=== PATIENT | male | born 1960 | race African-American/Black ===

== ENCOUNTER 2018-01-08 12:59 | Emergency (ER) | payer OTHER ==
--- NOTE | 2018-01-08 15:07 | ER Document Report ---
HPI - HPI Patient complains to provider of: Abscess Onset: Last week Onset/Duration: Persistent Quality of pain: Achy Pain Level: 3 Context: Patient presents in the custody of [facility]. Patient complains of abscess to the left buttock for the past week. Patient states area started to drain 3 days ago. Patient does report a history of diabetes although has not been on any medications to treat his diabetes. Patient states that they checked his blood sugar in [facility] and that his sugars were running fine. Patient was started on Bactrim and minocycline yesterday evening. Associated Symptoms: Other - Abscess. denies: Fever Exacerbated by: Movement Relieved by: Denies Similar symptoms previously: No Recently seen / treated by doctor: No - ROS ROS below otherwise negative: Yes Systems Reviewed and Negative: Yes All other systems reviewed and negative - CONSTITUTIONAL Constitutional: DENIES: Fever - GASTROINTESTINAL Gastrointestinal: DENIES: Nausea, Patient vomiting - MUSCULOSKELETAL Musculoskeletal: REPORTS: Extremity pain - DERM Skin Color: Normal Skin Problems: Abrasion Past Medical History - General Information source: Patient - Social History Smoking Status: Unknown if Ever Smoked Frequency of alcohol use: None Drug Abuse: None Family History: Reviewed & Not Pertinent Patient has suicidal ideation: No Patient has homicidal ideation: No Endocrine Medical History: Reports: Hx Diabetes Mellitus Type 2 Renal/ Medical History: Denies: Hx Peritoneal Dialysis Surgical Hx: Negative Vertical Provider Document - CONSTITUTIONAL Agree With Documented VS: Yes Exam Limitations: No Limitations General Appearance: WD/WN, No Apparent Distress - INFECTION CONTROL TRAVEL OUTSIDE OF THE [place] IN LAST 30 DAYS: No - HEENT HEENT: Atraumatic, Normocephalic - NECK Neck: Normal Inspection - RESPIRATORY Respiratory: Breath Sounds Normal, No Respiratory Distress - CARDIOVASCULAR Cardiovascular: Regular Rate, Regular Rhythm - MUSCULOSKELETAL/EXTREMETIES Musculoskeletal/Extremeties: MAEW - NEURO Level of Consciousness: Awake, Alert, Appropriate Motor/Sensory: No Motor Deficit - DERM Integumentary: Warm, Dry, No Rash, Abscess - Large resolving abscess to left buttock. No surrounding skin erythema. Minimal purulence able to be expressed from wound. Course - Vital Signs Vital signs: Temp Pulse Resp BP Pulse Ox 97.6 F 65 16 101/53 L 95 01/08/18 13:18 01/08/18 13:18 01/08/18 13:18 01/08/18 13:18 01/08/18 13:18 - Laboratory Laboratory results interpreted by me: 01/08/18 14:10 POC Glucose 125 H Procedures - Incision and Drainage Left Buttock Type: Simple Anesthetic type: 1% Lidocaine Blade size: 11 I&D procedure: Betadine prep applied Incision Method: Incision made by scalpel Amount/type of drainage: Small amount of purulent drainage Notes: 01/08/18 15:03 Patient with noted peeling skin surrounding open draining area of abscess. Devitalized tissue removed from surface of abscess, small amount of purulent drainage able to be expressed. Wound probed to break up loculations. Wound was then packed with quarter-inch iodoform gauze. Adult Front & Back picture: 1 - Abscess Discharge - Discharge Clinical Impression: Left buttock abscess Condition: Stable Disposition: HOME, SELF-CARE Instructions: Abscess ([facility]), Antibiotic Therapy ([facility]), Post Incision and Drainage Additional Instructions: Return immediately for any new or worsening symptoms Followup with your primary care provider, call tomorrow to make a followup appointment Wound culture is pending, we will call if you need any different treatment Continue to change dressings daily. Monitor for any worsening signs of infection. Remove the packing in 2 days. Continue to take your antibiotics as previously prescribed Referrals: [facility] [Provider Group] - Follow up as needed
[2018-01-08 15:27] VITALS: BP 110/62
== END 2018-01-08 15:26 | disposition home or self-care (01) ==
LOC: ER 12:59
DX: L02.31 Cutaneous abscess of buttock (principal); T14.8XXA Other injury of unspecified body region, initial encounter; X58.XXXA Exposure to other specified factors, initial encounter; E11.9 Type 2 diabetes mellitus without complications; R52 Pain, unspecified
CPT/HCPCS: 99284; 87070; 87205; 82962; 87075; 87077; 87186; 10060; A6266